=== PATIENT | female | born 1950 | race Caucasian/White ===

== ENCOUNTER 2020-11-04 20:09 | Emergency (ER) | payer MEDICARE, OTHER ==
--- NOTE | 2020-11-04 21:05 | EDM.PDOC ---
ED HPI GENERAL MEDICAL PROBLEM - General Chief Complaint: Lower Extremity Injury/Pain Stated Complaint: FALL/ LT KNEE PAIN Time Seen by Provider: 11/04/20 20:30 Source of Information: Reports: Patient, RN Notes Reviewed History Limitations: Reports: No Limitations - History of Present Illness INITIAL COMMENTS - FREE TEXT/NARRATIVE: Patient is a 7-year-old female presenting to the emergency department with complaints of pain to her left knee. Reports that she was trying to move a chair near her camper and tripped on a carpet, landing directly on her anterior knee on the cement. She has been unable to bear weight on the leg since injury. Denies any numbness or tingling of the extremity. She has not taken anything for pain thus far. Left Knee Pain Score (Numeric/FACES): 9 - Related Data Allergies Allergy/AdvReac Type Severity Reaction Status Date / Time acetaminophen [From Percocet] AdvReac Mild Headache Verified 11/04/20 20:32 codeine AdvReac Mild Headache Verified 11/04/20 20:31 hydrocodone [From Vicodin] AdvReac Mild Headache Verified 11/04/20 20:32 morphine AdvReac Mild Headache Verified 11/04/20 20:32 oxycodone [From Percocet] AdvReac Mild Headache Verified 11/04/20 20:32 Home Meds: Home Meds Gabapentin [Neurontin] 600 mg PO TID 11/04/20 [History] Past Medical History Respiratory History: Reports: Sleep Apnea Gastrointestinal History: Reports: Hiatal Hernia 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: Musculoskeletal History: Reports: Arthritis, Back Pain, Chronic, Fibromyalgia, Neck Pain, Chronic Endocrine/Metabolic History: Reports: Obesity/BMI 30+ - Infectious Disease History Infectious Disease History: Reports: Novel Coronavirus - Past Surgical History GI Surgical History: Reports: Colonoscopy Musculoskeletal Surgical History: Reports: Hip Replacement Other Musculoskeletal Surgeries/Procedures:: left hip replaced in 2017 and right hip replaced in 2019 Social & Family History - Tobacco Use Tobacco Use Status *Q: Never Tobacco User Second Hand Smoke Exposure: No - Caffeine Use Caffeine Use: Reports: Coffee - Recreational Drug Use Recreational Drug Use: No Review of Systems - Review of Systems Review Of Systems: Comprehensive ROS is negative, except as noted in HPI. ED EXAM, GENERAL - Physical Exam Exam: See Below General Appearance: Alert, WD/WN, No Apparent Distress Respiratory/Chest: No Respiratory Distress, Lungs Clear, Normal Breath Sounds, No Accessory Muscle Use, Chest Non-Tender Cardiovascular: Normal Peripheral Pulses, Regular Rate, Rhythm, No Edema, No Gallop, No JVD, No Murmur, No Rub Extremities: Other (Faint ecchymosis and swelling to the left knee immediately distal to the patella. No obvious deformity. Area is tender to palpation. Pain worsens with bending of the joint.) Neurological: Alert, Oriented, CN II-XII Intact, Normal Cognition, Normal Gait, Normal Reflexes, No Motor/Sensory Deficits Psychiatric: Normal Affect, Normal Mood Course - Vital Signs Last Recorded V/S: Last Vital Signs Temp 97.8 F 11/04/20 20:27 Pulse 73 11/04/20 20:27 Resp 16 11/04/20 20:27 BP 130/72 11/04/20 20:27 Pulse Ox 97 11/04/20 20:27 - Orders/Labs/Meds Orders: Active Orders 24 hr Category Date Time Status Knee 3V Lt [CR] Stat Exams 11/04/20 20:31 Taken - Re-Assessments/Exams Free Text/Narrative Re-Assessment/Exam: 11/04/20 21:20 Knee x-ray shows no evidence of fracture. Patient will be placed in knee im mobilizer. Offered crutches, however she would prefer to go to the medical supply store tomorrow and see if that she can rent a walker. Advised that we do have walkers available here, however she does not want to purchase one. Discussed pain management. She declined the need for pain medications. Discussed ice and elevation as well as Tylenol or ibuprofen as needed for discomfort. Discharge instructions as documented. Departure - Departure Time of Disposition: 21:22 Disposition: Home, Self-Care 01 Condition: Good Clinical Impression: Knee contusion Qualifiers: Encounter type: initial encounter Laterality: left Qualified Code(s): S80.02XA - Contusion of left knee, initial encounter - Discharge Information *PRESCRIPTION DRUG MONITORING PROGRAM REVIEWED*: No *COPY OF PRESCRIPTION DRUG MONITORING REPORT IN PATIENT JEAN PIERRE: No Instructions: Contusion, [id number] Referrals: PCP,Not In Area [Primary Care Provider] - Forms: ED Department Discharge Additional Instructions: You were seen in the emergency department today for pain to your left knee after falling yesterday. X-rays were completed and show no fractures. You are suffering from a contusion of your left knee. You have been given a knee immobi lizer to stabilize the joint. Wear this until pain improves. Recommend using a walker for assistance walking. You may go to [facility] a rehab to see if they rent to them there. Recommend ice and elevation when at rest. If you should experience any worsening symptoms, please not hesitate to return to the emergency department for reevaluation. Sepsis Event Note (ED) - Evaluation Sepsis Screening Result: No Definite Risk - Focused Exam Vital Signs: Vital Signs Temp Pulse Resp BP Pulse Ox 11/04/20 20:27 97.8 F 73 16 130/72 97 - My Orders Last 24 Hours: My Active Orders 11/04/20 20:31 Knee 3V Lt [CR] Stat - Assessment/Plan Last 24 Hours: My Active Orders 11/04/20 20:31 Knee 3V Lt [CR] Stat
--- NOTE | 2020-11-04 21:32 | CR ---
Left knee: AP, lateral and sunrise patellar views of the left knee were obtained. Comparison: No prior knee exam is available. Moderate medial joint space narrowing is seen. Lateral tibial plateau shows a slight indentation which is most likely old. Mild joint space narrowing is seen within the patellofemoral joint. No definite fracture is appreciated. No dislocation is noted. Impression: 1. Degenerative change as noted above. 2. No definite acute abnormality is appreciated. Note: If patient remains symptomatic, further evaluation by CT could be considered. Diagnostic code #2
== END 2020-11-04 21:40 | disposition home or self-care (01) ==
LOC: JD.ED 20:09
DX: S80.02XA Contusion of left knee, initial encounter (principal); E66.9 Obesity, unspecified; Z68.36 Body mass index [BMI] 36.0-36.9, adult; Z88.5 Allergy status to narcotic agent; Z88.6 Allergy status to analgesic agent; W01.0XXA Fall on same level from slipping, tripping and stumbling without subsequent striking against object, initial encounter
CPT/HCPCS: 73562-26-LT; 73562-LT; 99282; 99283-25